=== PATIENT | male | born 1940 | race Caucasian/White ===

== ENCOUNTER 2017-04-18 04:24 | Emergency (ER) | payer MEDICARE, BC ==
--- NOTE | 2017-04-18 07:04 | ER ---
ADMIT: 04/18/2017 RM/LOC: ER [facility] MR#: [id number] [facility] [id number] LAURENT PRADHAN [address] [place] [address] Emergency Room Report SEX: M AGE: 76 : 1940 DATE: 04/18/2017 The patient is a 76-year-old male with DJD of knees, advanced dementia, COPD, complains of acute-onset left knee pain tonight. Exam remarkable for nontoxic, afebrile, obese male with no knee effusion, diffusely tender anteriorly. Received Toradol, Dilaudid, Reglan, prednisone with improvement. Home with prednisone 40 mg q.a.m. x5 days. Follow up with Dr. Marie as needed. Minh Arenas MD/ kellenl JOB #: [id number] CC: Minh Arenas MD, Attending Physician Jackson Marie MD, Family Physician Jackson Marie MD
== END 2017-04-18 05:20 | disposition home or self-care (01) ==
LOC: ER 04:24
DX: M17.12 Unilateral primary osteoarthritis, left knee (principal); I10 Essential (primary) hypertension; E11.9 Type 2 diabetes mellitus without complications; E66.9 Obesity, unspecified; E03.9 Hypothyroidism, unspecified; G30.9 Alzheimer's disease, unspecified; F02.80 Dementia in other diseases classified elsewhere, unspecified severity, without behavioral disturbance, psychotic disturbance, mood disturbance, and anxiety; Z88.8 Allergy status to other drugs, medicaments and biological substances